=== PATIENT | male | born 1970 | race Caucasian/White ===

== ENCOUNTER 2023-05-21 17:39 | Inpatient (IN) | payer MEDICAID ==
[~2023-05-21] VITALS: Ht 180.3 cm; Wt 55.5 kg
[2023-05-21] MEDS ORDERED: ACETAMINOPHEN 325 MG TABLET PO PRN (18:30)
[2023-05-21] MEDS ORDERED: ALBUTEROL HALF STRENGTH 1.25 MG/3 ML VIAL.NEB NEB PRN (18:30)
[2023-05-21] MEDS ORDERED: ONDANSETRON HCL/PF 4 MG/2 ML VIAL IVP PRN (18:30)
[2023-05-21 19:10] VITALS: O2SAT 92
--- NOTE | 2023-05-21 19:10 | NUR ---
RN opening notes Received Pt sitting in bed comfortably. Pt is a direct admit from [facility]. Pt is alert and orientedx4. On 2 L NC. No SOB. No S/S of distress noted. IV site at LAC# 20 is clean, intact and flushes well. Pt refuses skin assessment. Explained risks and benefits. Pt informed that Pt's skin is intact. Pt is able to ambulates with a steady gait. Safety precautions is maintained. Bed at low position, brakes locked, side rails upX2, hob elevated, bed alarm is on and call light is within reach. Will continue to monitor.
[2023-05-21] MEDS: ALBUTEROL HALF STRENGTH 1.25 MG/3 ML VIAL.NEB NEB SCH (19:24)
[2023-05-21] MEDS: IPRATROPIUM NEB FS 0.5 MG/2.5 ML AMPUL.NEB NEB SCH (19:24)
[2023-05-21 19:28] VITALS: O2SAT 97
[2023-05-21] MEDS: predniSONE 20 MG TABLET PO SCH ×2 (19:55→21:00)
[2023-05-21] MEDS: CEFTRIAXONE 1 G in IV D5W 50 ML IV SCH (19:59)
[2023-05-21 20:00] VITALS: BP 99/59; TEMP 97.7; O2SAT 100
[2023-05-21] MEDS: AZITHROMYCIN 500 MG in IV D5W 250 ML IV SCH (21:08)
--- NOTE | 2023-05-21 21:20 | NUR ---
MAAME otoole Prednisone was given at 2054. Addendum: 05/22/23 at 701 by RAMAKRISHNA STEVEN RN was given at 1954. not 2054.
[2023-05-22] VITALS (11 sets, daily range): BP systolic 93–104; BP diastolic 59–66; TEMP 97.9–98; O2SAT 95–98
[2023-05-22] MEDS: predniSONE 20 MG TABLET PO SCH ×3 (05:10→20:19)
[2023-05-22 06:06] LABS: HEMATOCRIT 39 % (39-51); HEMOGLOBIN 13.3 g/dL (13.5-17.5); LYMPHOCYTES # (AUTO) 0.3 K/uL (0.8-4.8); LYMPHOCYTES % (AUTO) 2.5 % (20.0-44.0); MEAN CORPUSCULAR HGB CONC 34 g/dl (31.0-36.0); MEAN CORPUSCULAR VOLUME 93 fL (80-96); MONOCYTES # (AUTO) 0.9 K/uL (0.1-1.30); MONOCYTES % (AUTO) 6.5 % (2.0-12.0); NEUTROPHILS # (AUTO) 12.5 K/uL (1.8-8.9); PLATELET COUNT (AUTO) 282 K/uL (150-450); RED BLOOD CELL COUNT(AUTO) 4.18 MIL/uL (4.5-6.0); WHITE BLOOD COUNT (AUTO) 13.8 K/uL (4.3-11.0)
[2023-05-22 06:14] LABS: CALCIUM, SERUM 9.8 mg/dL (8.5-10.1); MAGNESIUM 2.2 mg/dL (1.8-2.4); PHOSPHORUS 4.3 mg/dL (2.5-4.9); POTASSIUM 4.3 mmol/L (3.5-5.1)
--- NOTE | 2023-05-22 06:30 | NUR ---
RN closing notes Pt is resting in bed comfortably. Pt is alert and orientedx4. On 2 L NC. No SOB. No S/S of distress noted. IV site at LAC# 20 is clean, intact and flushes well. Vs is stable. afebrile. routine meds were given as ordered. kept Pt clean,dry and comfortable. Safety precautions is maintained. Bed at low position, brakes locked, side rails upX2, hob elevated, bed alarm is on and call light is within reach. Will endorse to am nurse for RANDY.
--- NOTE | 2023-05-22 07:30 | NUR ---
MS RN OPENING NOTE Patient in bed, awake. a/O x 4,able to make needs known. On O2 at 2 LPM via NC, no SOB or s/s of distress noted. IV access on LAC #20 SL, intact and patent. Tanvir any pain or discomfort at this time. Safety precautions in place: bed in low, locked position; siderails up x 2; call light within reach. Will continue to monitor.
[2023-05-22] MEDS: IPRATROPIUM NEB FS 0.5 MG/2.5 ML AMPUL.NEB NEB SCH ×4 (07:53→20:10)
[2023-05-22] MEDS: ALBUTEROL HALF STRENGTH 1.25 MG/3 ML VIAL.NEB NEB SCH ×4 (07:53→20:10)
[2023-05-22] MEDS: CEFTRIAXONE 1 G in IV D5W 50 ML IV SCH (18:00)
--- NOTE | 2023-05-22 19:00 | NUR ---
RN opening notes Received Pt sitting in bed comfortably talking with roommates. Pt is alert and orientedx4. On 2 L NC. No SOB. No S/S of distress noted. IV site at LFA# 20 is clean, intact and flushes well. Pt is able to ambulates with a steady gait. Safety precautions is maintained. Bed at low position, brakes locked, side rails upX2, hob elevated, bed alarm is on and call light is within reach. Will continue to monitor.
--- NOTE | 2023-05-22 19:24 | NUR ---
MS RN CLOSING NOTE Patient in bed, resting. A/O x 4,able to make needs known. On O2 at 2 LPM via NC, no SOB or s/s of distress noted. IV access on LFA #20 SL, intact and patent. Denies any pain or discomfort at this time. All needs attended to. Due meds given. Safety precautions in place: bed in low, locked position; siderails up x 2; call light within reach. Will endorse to litigation docket manager nurse for RANDY.
[2023-05-22] MEDS: AZITHROMYCIN 500 MG in IV D5W 250 ML IV SCH (20:07)
[2023-05-23] VITALS (11 sets, daily range): BP systolic 97–115; BP diastolic 64–74; TEMP 97.6–98; O2SAT 90–98
[2023-05-23] MEDS: predniSONE 20 MG TABLET PO SCH ×3 (05:51→20:35)
--- NOTE | 2023-05-23 06:40 | NUR ---
RN closing notes Pt is resting in bed comfortbaly. Pt is alert and orientedx4. On 1 L NC. No SOB. No S/S of distress noted. IV site at LFA# 20 is clean, intact and flushes well. Routine meds were given as ordered. Kept Pt clean, dry and comfortbale. Safety precautions is maintained. Bed at low position, brakes locked, side rails upX2, hob elevated, bed alarm is on and call light is within reach. Will endorse to am nurse for RANDY.
[2023-05-23] MEDS ORDERED: ALBUTEROL 90 MCG INH (08:17)
[2023-05-23] MEDS: ALBUTEROL HALF STRENGTH 1.25 MG/3 ML VIAL.NEB NEB SCH ×4 (08:22→20:10)
[2023-05-23] MEDS: IPRATROPIUM NEB FS 0.5 MG/2.5 ML AMPUL.NEB NEB SCH ×4 (08:22→20:10)
[2023-05-23] MEDS: ENSURE ENLIVE CHOC 237 ML CAN PO SCH ×2 (12:14→17:02)
--- NOTE | 2023-05-23 18:41 | NUR ---
CLOSING NOTE PATIENT IN ROOM A/Ox4, BEING MONITORED ON ROOM AIR SPO2 95%, WITH NO S/S OF SOB OR DISTRESS. PATIENT DENIES ANY PAIN AT THIS TIME. THROUGHOUT SHIFT COMPLIANT AND COOPERATIVE TO CARE. ADMINISTERED MEDICATION MD ORDER/ PER PT STATUS. IV LFA G20 REMAINS INTACT AND PATENT, FLUSHING WELL. FALL AND SAFETY PRECAUTION IN PLACE: BED LOCKED AND AT THE LOWEST POSITION, SRx2, CALL LIGHT WITHIN REACH
[2023-05-23] MEDS: CEFTRIAXONE 1 G in IV D5W 50 ML IV SCH (18:50)
--- NOTE | 2023-05-23 19:30 | NUR ---
RN OPENING NOTE RECEIVED PT AWAKE, WATCHING TV AT THIS TIME. A/O X4, ABLE TO MAKE NEEDS KNOWN. ON RA WITH NO S/S OF SOB OR DISTRESS. DENIES ANY PAIN AT THIS TIME. IV ACCESS LFA #20G, PATENT, INTACT, FLUSHING WELL. FALL AND SAFETY PRECAUTION IN PLACE: BED LOCKED AND AT THE LOWEST POSITION, SRx2, CALL LIGHT AND TRAY TABLE WITHIN REACH. WILL CONTINUE TO MONITOR AND ASSIST.
[2023-05-23] MEDS: AZITHROMYCIN 500 MG in IV D5W 250 ML IV SCH (20:35)
[2023-05-24] VITALS (10 sets, daily range): BP systolic 106–112; BP diastolic 65–77; TEMP 98; O2SAT 94–98
[2023-05-24] MEDS: predniSONE 20 MG TABLET PO SCH ×3 (04:32→20:18)
--- NOTE | 2023-05-24 06:44 | NUR ---
RN CLOSING NOTE PT AWAKE, WATCHING TV AT THIS TIME. A/O X4, ABLE TO MAKE NEEDS KNOWN. STABLE ON RA WITH NO S/S OF SOB OR DISTRESS, SAT AT 95%. DENIES ANY PAIN AT THIS TIME. IV ACCESS LFA #20G, PATENT, INTACT, FLUSHING WELL. ALL CARE PROVIDED AND MEDS TOLERATED EWLL. FALL AND SAFETY PRECAUTION MAINTAINED: BED LOCKED AND AT THE LOWEST POSITION, SRx2, CALL LIGHT AND TRAY TABLE WITHIN REACH. WILL ENDORSE RANDY TO DAY SHIFT NURSE.
--- NOTE | 2023-05-24 07:28 | NUR ---
OPENING NOTES PATIENT AWAKE IN BED, A/O X4. NO S/S OF PAIN NOTED AT THIS TIME. ON O2 AT 1LPM VIA NASAL CANNULA PRN, BREATHING EVEN AND UNLABORED, NO DISTRESS OR SOB NOTED. IV ACCESS LFA #20G SL, INTACT, PATENT AND FLUSHING WELL. FALL AND SAFETY MEASURES IN PLACE AND MAINTAINED AT ALL TIMES, BED ALARM ON, BED IN LOW AND LOCK POSITION, CALL LIGHT AND TABLE WITHIN EASY REACH, SIDE RAILS UP X2. WILL CONTINUE TO MONITOR THE PATIENT.
[2023-05-24] MEDS: ALBUTEROL HALF STRENGTH 1.25 MG/3 ML VIAL.NEB NEB SCH ×4 (07:37→20:12)
[2023-05-24] MEDS: IPRATROPIUM NEB FS 0.5 MG/2.5 ML AMPUL.NEB NEB SCH ×4 (07:37→20:12)
[2023-05-24] MEDS: ENSURE ENLIVE CHOC 237 ML CAN PO SCH ×3 (08:22→16:47)
[2023-05-24] MEDS ORDERED: LEVO500T90 PO (12:10)
[2023-05-24] MEDS ORDERED: FLUT1DIS3 INH (12:10)
[2023-05-24] MEDS ORDERED: PRED20TA PO (12:10)
--- NOTE | 2023-05-24 14:36 | NUR ---
RN NOTE SPOKE WITH PALAK ROSA, DISCHARGE MEDICATION WILL STILL BE AVAILABLE TOMORROW MORNING. PATIENT OPTED TO WAIT FOR MEDICATION. INSTRUCTED OF DISCHARGE TOMORROW MORNING AND [place] [address] [facility], [address], [place] [address]. PATIENT VERBALIZED UNDERSTANDING
[2023-05-24] MEDS: CEFTRIAXONE 1 G in IV D5W 50 ML IV SCH (18:40)
--- NOTE | 2023-05-24 19:30 | NUR ---
RN OPENING NOTES RECEIVED PATIENT AWAKE IN BED, WATCHING TV AT THIS TIME. A/O X4, ABLE TO MAKE NEEDS KNOWN. NO S/S OF PAIN NOTED AT THIS TIME. ON RA, BREATHING EVEN AND UNLABORED, NO DISTRESS OR SOB NOTED. IV ACCESS RFA #22G SL, INTACT, PATENT AND FLUSHING WELL. FALL AND SAFETY MEASURES IN PLACE: BED LOCKED AND IN LOW POSITION, SIDE RAILS UP X2, CALL LIGHT AND TABLE WITHIN EASY REACH. WILL CONTINUE TO MONITOR AND ASSIST.
--- NOTE | 2023-05-24 19:38 | NUR ---
CLOSING NOTES PATIENT AWAKE IN BED, A/O X4. NO S/S OF PAIN NOTED AT THIS TIME. ON O2 AT 1LPM VIA NASAL CANNULA PRN, BREATHING EVEN AND UNLABORED, NO DISTRESS OR SOB NOTED. REINSERTED IV ACCESS RFA #22G SL, INTACT, PATENT AND FLUSHING WELL. TURN TO SIDES Q2H PER PROTOCOL. SKIN CARE IMPLEMENTED. FALL AND SAFETY MEASURES IN PLACE AND MAINTAINED AT ALL TIMES, BED ALARM ON, BED IN LOW AND LOCK POSITION, CALL LIGHT AND TABLE WITHIN EASY REACH, SIDE RAILS UP X2. WILL ENDORSE TO QUALITY PROCESS LEAD NURSE
[2023-05-24] MEDS: AZITHROMYCIN 500 MG in IV D5W 250 ML IV SCH (20:17)
[2023-05-25] MEDS: predniSONE 20 MG TABLET PO SCH (04:21)
--- NOTE | 2023-05-25 06:30 | NUR ---
RN CLOSING NOTES PATIENT SLEEPING IN BED, EASILY AROUSED. A/O X4, ABLE TO MAKE NEEDS KNOWN. NO S/S OF PAIN NOTED AT THIS TIME. STABLE ON RA, BREATHING EVEN AND UNLABORED, NO DISTRESS OR SOB NOTED. IV ACCESS RFA #22G SL, INTACT, PATENT AND FLUSHING WELL. ALL CARE PROVIDED AND MEDS TOLERATED WELL. FALL AND SAFETY MEASURES IN PLACE: BED LOCKED AND IN LOW POSITION, SIDE RAILS UP X2, CALL LIGHT AND TABLE WITHIN EASY REACH. WILL ENDORSE RANDY TO DAY SHIFT NURSE.
--- NOTE | 2023-05-25 07:25 | NUR ---
OPENING NOTES PATIENT AWAKE IN BED, A/O X4. NO S/S OF PAIN NOTED AT THIS TIME. ON ROOM AIR, BREATHING EVEN AND UNLABORED, NO DISTRESS OR SOB NOTED. IV ACCESS RFA #20G SL, INTACT, PATENT AND FLUSHING WELL. FALL AND SAFETY MEASURES IN PLACE AND MAINTAINED AT ALL TIMES, BED ALARM ON, BED IN LOW AND LOCK POSITION, CALL LIGHT AND TABLE WITHIN EASY REACH, SIDE RAILS UP X2. WILL CONTINUE TO MONITOR THE PATIENT.
[2023-05-25 07:31] VITALS: O2SAT 94
[2023-05-25] MEDS: ALBUTEROL HALF STRENGTH 1.25 MG/3 ML VIAL.NEB NEB SCH ×2 (07:31→11:10)
[2023-05-25] MEDS: IPRATROPIUM NEB FS 0.5 MG/2.5 ML AMPUL.NEB NEB SCH ×2 (07:31→11:10)
[2023-05-25 07:44] VITALS: O2SAT 100
[2023-05-25] MEDS: ENSURE ENLIVE CHOC 237 ML CAN PO SCH (08:15)
--- NOTE | 2023-05-25 11:06 | NUR ---
"SW consult: SW consult requested for a homeless 52 year old male who was brought to [facility] ER due to chest pain. Patient was in bed and appeared to be alert and oriented X4 (self, place, time, situation)and was cooperative with this personal lines underwriter while conducting an assessment.Patient moved back to [place] from [place] and is staying at a nursing home at [address] [place] [address] since January 29. 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 Patient stated that his 24 year old son is his support system. Patient denied any visual/auditory hallucinations and denied any Suicidal/Homicidal ideation. Patient signed a homeless waiver and SW filed it is his chart. DC Plan: Patient would return to [address] [place] [address]. Homeless Resource: HOMELESS: Shelters: [facility] Provider: [facility] Address: [address] [place] [address] [place] [address] # of Beds: 47 Population Served: [facility] 6 | [facility] Provider: [facility] Address: [address], [address] # of Beds: 66 Population Served: [facility] Provider: First to Serve Address: [address] [facility], [address] # of Beds: 56 Population Served: [facility] [place] Provider: [facility]. [facility] Address: [address] [facility], [address] # of Beds: 49 Population Served: [facility] 8 | [facility] Provider: First to Serve Address: [address] [facility], [address] # of Beds: 37 Population Served: [facility] Hygiene: [facility]: [address] [address] [place] ; [place] [facility] [address] [facility] ; Mid [place] [address] . Food Resources: [place] [facility] at [facility]- [address] [place]; Meet Each Need with Dignity ([facility]) [address] [place]; [facility] Food Pantry [address] [facility]; [facility] [address] [facility] Hospital[facility]hea [place]. Mental Health resources provided: [facility] [address] [place], [place] [address] ; [facility] [place], Inc[employer] [address] [facility] [address], [place], [place] [id number] ; [facility] Mental [facility] [address] [facility] [place], [place] [id number] ; [facility] Health [place] [address] [place], [place] [id number] Healthcare Clinics: [facility] [address] [facility], [address] [place]. [place] ; [facility] [address] [facility] [address] [place] [address]; [facility] [address] [facility]. [place] [phone] Counseling--Outpatient [facility] [address] [facility], [place] [address] (Specializes in in-depth psychotherapy for emotional distress: anxiety, depression, interpersonal conflicts, life transitions, childhood abuse) [facility] [address] [place] [address] (Assist with solving problem marital difficulties, separation & divorce, aging parents, & grief, chronic & terminal illness) [facility] [address] [place] [address] (Deal with loss & grief, anxiety, marital difficulties) Homebound/Mental Health Services [address] [facility], [address] [place], [place] [id number] (Provide in-home mental services to people who are incapable of leaving their homes) Organization for Needs of the Elderly Senior Service/Resource Center [address] [place], [place] [phone] [facility] [address] [place] [address] PSYCHIATRIC OUTPATIENT SERVICES [facility] Partial Hospitalization and Intensive Outpatient Program (Managed Care and [place] Only) [address] [place] [address] [facility] [address] [facility] Partial Hospitalization and Outpatient Program [address] [place] [address] [place], [place] [id number] [facility] Mental Health [facility] [address] [place] [address] [facility] Partial Hospitalization and Outpatient Program [address] [address] [place], [place] [phone] Food Pantries [facility] [address] [place] [address] [place] [facility] [address] [place] [address] FISH of [place] [address] [place] [address] Loaves and Fishes II [address] [place] [address] [facility] Food Pantry - [address] [place] [address] [facility] [address] [place] [address] [facility] [address] [place] [address] Rock of the [place] [address] [place] [address] [place] Hunger Relief of [place] [address] [place] [address] [facility] [address] [place] [address] [facility] [address] [place] [address] M F 9am - 12 noon [phone] M Th 10am 2 pm Fri 10 am 12 noon [phone] Wed 1 3 pm Sat 1 3:30 pm [phone] M, W 10 am 12:30 pm [phone] M, F 7:30 11 am T, F 9 11 am [phone] MTh, 10am1:30pm Sun 9 am 12 noon [phone] Tues 45:30 pm [phone] Fri 8 10 am [phone] Wed 4 pm Sign up begins 12:30 pm [phone] Thurs 2 3 pm [phone] [facility] [place] Food Mandel Multiple Food Mandel in the [place] on different days [email or web address] St. [facility] [place] by [facility] [address] [place] [address] [facility] [address] [place] [address] [facility] [address]50 [place] [address] [facility] [address] [place] [address] 9am Noon 9am Noon 9am Noon 1pm - 5pm 8am 11am 7:30-10:30 am You have value. day 9 am 12 noon [phone] Tuesday 2 3 pm [phone] Joseph 6 8:30 pm [phone] Tuesday: 4:30-6:30 Joseph: 3:30 5:00 pm Compliments of [address] [place] | [phone] Take the next step towards hope. Food Pantries Food Pantries HOMELESS RESOURCE 2021 DIRECTORY Hot Showers Includes food and clothing resources 2 Parents with Children 0926 [facility] [phone] [facility] [phone] Ascencia [place] [phone] [facility] [phone] Family [facility] [phone] [facility] [phone] ext 240 [facility] [phone] [facility] [phone] Little [place] ranulfo [place] [phone] [facility] [phone] [facility] [place] [phone] The Midnight [place] [phone] ext [phone] New Life Beginnings [place] [phone] [facility] [place] [phone] Starting Over [phone] [facility] [place] [phone] Emergency/First Come, First Served 211 [facility], Call 211 [facility] [place] [phone] [address] [place] [address] Single Men Ascencia [place] [phone] Salvation [facility] [phone] [facility] [place] [phone] [place] [facility] [place] [facility]athy [place] [phone] [facility] [phone] [facility] [phone] Starting Over [phone] The Midnight [place] [phone] ext [phone] [facility] [place] [phone] [facility] [phone] Mens Recovery Programs Abernathy [place] [phone] [facility] [phone] The Midnight [place] [phone] ext [phone] [facility] [place] [phone] [facility] [place] [phone] [facility] [phone] Single Women A Way of Life [phone] Ascencia [place] [phone] Good Jim[place] [phone] [facility] [phone] [facility] [phone] The Midnight [place] [phone] ext 1650 New Economics for Women [phone] Starting Over [phone] Sex Trafficking Children of the Night [place] [phone] ext 0 [facility] [place] [phone] [employer] Project Hotline [phone] Women's Recovery Programs [facility] Mental Health Services [phone] Abernathy [place] [phone] [facility] [place] [phone] [facility] [place] [phone] [facility] [place] [phone] [facility] [phone] [facility] [place] [phone] Youth Only (11-28 years old) 1736 Family [facility] [phone] Children of the Night Benjamin Glover [phone] ext 0 Youth Emerging Stronger ([place] [facility]) [facility] [phone] [facility] [place] (18-24 years old) [phone] [facility] (16-24 years old) [phone] [facility] (16-28 years old) Intimate Partner/ Domestic Violence 1736 Family [facility] [place] [phone] [facility] [phone] [facility] [phone] [facility] [phone] [facility] [phone] [facility] [phone] [facility] [phone] [facility] [phone] [facility] [place] [phone] [place] [facility] [place] [facility] [phone] Shepherds Door [phone] Sojourn, The Peoples Concern [phone] [place] [phone] [facility] [phone] [facility] [place] [phone] Domestic Abuse Response Team National hotline [phone] Women [facility] [phone] [facility] [phone] [facility] [place] [phone] [facility] [phone] [facility] [phone] [facility] Service"
[2023-05-25 11:10] VITALS: O2SAT 96
[2023-05-25 11:23] VITALS: O2SAT 99
--- NOTE | 2023-05-25 12:05 | NUR ---
DISCHARGE NOTE PATIENT DISCHARGE IN STABLE MEDICAL CONDITION. A/O X4. VITAL SIGNS TAKEN, STABLE AND RECORDED. NO IV ACCESS. NAME ARM BAND REMOVED. SKIN INTACT. ALL BELONGINGS CHECKED AND BELONGINGS LIST SIGNED. HEALTH TEACHING AND DISCHARGE INSTRUCTIONS GIVEN AND VERBALIZED UNDERSTANDING. INSTRUCTED PATIENT TO EXECUTIVE PERSONAL ASSISTANT MEDICATION AT [facility], ADDRESS PROVIDED. DISCUSSED PRESCRIPTION WITH PATIENT. INSTRUCTED PATIENT IN CASE OF EMERGENCY TO CALL 911 OR GO TO THE NEAREST ER. PATIENT LEFT AMBULATING WITH NO SIGNS OF DISTRESS, ACCOMPANIED BY RN TO THE LOBBY. PATIENT WAS PICKED UP BY SON TAYLOR. CHARGE NURSE AWARE OF DISCHARGED.
== END 2023-05-25 12:00 | disposition home or self-care (01) | DRG 137 ==
LOC: TELE 17:39 → MED 18:40
PROVIDERS: ADMIT Nurse Practitioner Acute Care; ATTEND Nurse Practitioner Family
DX: J15.6 Pneumonia due to other Gram-negative bacteria (principal); E87.1 Hypo-osmolality and hyponatremia; R65.10 Systemic inflammatory response syndrome (SIRS) of non-infectious origin without acute organ dysfunction; J44.0 Chronic obstructive pulmonary disease with (acute) lower respiratory infection; J44.1 Chronic obstructive pulmonary disease with (acute) exacerbation; F17.210 Nicotine dependence, cigarettes, uncomplicated; Z59.01 Sheltered homelessness
CPT/HCPCS: 36415; 80048-TC; 83735-TC; 84100-TC; 85025-TC; 87081-TC; 94799-TC; A4223; G0378; J0456; J0696; J7040; J7060

== ENCOUNTER 2024-05-29 10:23 | Inpatient (IN) | payer MEDICAID ==
[2024-05-29] VITALS (11 sets, daily range): BP systolic 102–130; BP diastolic 67–78; TEMP 97.8; O2SAT 93–100
[~2024-05-29] VITALS: Ht 180.3 cm; Wt 52.6 kg
[~2024-05-29 10:23] MED LIST: ALBUTEROL 90 MCG INH
[2024-05-29 10:56] LABS: BASOPHILS % (AUTO) 0.1 % (0.0-2.0); HEMATOCRIT 43 % (39-51); HEMOGLOBIN 14.7 g/dL (13.5-17.5); LYMPHOCYTES # (AUTO) 0.8 K/uL (0.8-4.8); MEAN CORPUSCULAR HEMOGLOBIN 31 PG (26.0-33.0); MEAN CORPUSCULAR HGB CONC 34 g/dl (31.0-36.0); MEAN CORPUSCULAR VOLUME 93 fL (80-96); MONOCYTES # (AUTO) 1.5 K/uL (0.1-1.30); MONOCYTES % (AUTO) 7.5 % (2.0-12.0); NEUTROPHILS # (AUTO) 17.5 K/uL (1.8-8.9); NEUTROPHILS % (AUTO) 88.4 % (43.0-81.0); PLATELET COUNT (AUTO) 305 K/uL (150-450); RED BLOOD CELL COUNT(AUTO) 4.69 MIL/uL (4.5-6.0); RED CELL DISTRIBUTION WIDTH 13.3 % (11.5-15.0); WHITE BLOOD COUNT (AUTO) 19.8 K/uL (4.3-11.0)
[2024-05-29 11:07] LABS: CALCIUM, SERUM 8.5 mg/dL (8.5-10.1); CARBON DIOXIDE 39 mmol/L (21-32); CHLORIDE 87 mmol/L (98-107); CREATININE 0.8 mg/dL (0.6-1.3); GLUCOSE 143 mg/dL (74-106); POTASSIUM 4.9 mmol/L (3.5-5.1); SODIUM SERUM 124 mmol/L (136-145); UREA NITROGEN, BLOOD 12 mg/dL (7-18)
[2024-05-29 11:08] LABS: PARTIAL THROMBOPLASTIN TIME 22.3 SEC (24.3-34.3); PROTHROMBIN TIME 10.3 SECS (9.2-11.1)
[2024-05-29 11:20] LABS: ALANINE AMINOTRANSFERASE 26 U/L (12-78); ALBUMIN 3.5 g/dL (3.4-5.0); ALKALINE PHOSPHATASE 60 U/L (46-116); ASPARTATE AMINOTRANSFERASE 12 U/L (15-37); BILIRUBIN,DIRECT 0.3 mg/dL (0.0-0.2); BILIRUBIN,TOTAL 1.3 mg/dL (0.2-1.0); NT-PRO BNP 209 pg/mL (0-125); TOTAL PROTEIN, SERUM 6.9 g/dL (6.4-8.2)
[2024-05-29] MEDS: IPRATROPIUM NEB FS 0.5 MG/2.5 ML AMPUL.NEB NEB ONE (11:30)
[2024-05-29] MEDS: ALBUTEROL FS 2.5 MG/3 ML VIAL.NEB NEB ONE (11:30)
[2024-05-29] MEDS ORDERED: ALBU18HF2 IH (12:41)
[2024-05-29] MEDS ORDERED: ALBUTEROL FS 2.5 MG/3 ML VIAL.NEB ONE (12:47)
[2024-05-29] MEDS ORDERED: IPRATROPIUM NEB FS 0.5 MG/2.5 ML AMPUL.NEB ONE (12:47)
[2024-05-29 13:07] LABS: SITE, VBG Left Radial; VBG BASE EXCESS 5.6 mmol/L (-3-3); VBG COHb 2.2 %; VBG MetHb 0.5 %; VBG O2Hb 94.4 %; VBG PCO2 67.5 mmHg (40-52); VBG PH 7.322 (7.31-7.41); VBG PO2 99.6 mmHg (30-50); VBG TOTAL HEMOGLOBIN 14.7 G/dL (13.5-18.0); VENT MODE, VBG 4L O2 N.C
[2024-05-29 13:50] LABS: SITE, VBG Left Radial; VBG BASE EXCESS 4.2 mmol/L (-3-3); VBG COHb 1.9 %; VBG MetHb 0.4 %; VBG O2Hb 94.9 %; VBG OXYGEN SATURATION 97.1 %; VBG PCO2 68.1 mmHg (40-52); VBG PH 7.304 (7.31-7.41); VBG PO2 99.7 mmHg (30-50); VBG TOTAL HEMOGLOBIN 15.4 G/dL (13.5-18.0); VENT MODE, VBG 5L O2 NC
[2024-05-29] MEDS ORDERED: MAGNESIUM HYDROXIDE 30 ML UDC PO PRN (16:30)
[2024-05-29] MEDS ORDERED: ONDANSETRON HCL/PF 4 MG/2 ML VIAL IVP PRN (16:30)
[2024-05-29] MEDS ORDERED: Z GUARD REMEDY 4 OZ OINT TP PRN (16:30)
[2024-05-29 17:13] LABS: LACTIC ACID 3.4 mmol/L (0.4-2.0)
[2024-05-29] MEDS: methylPREDNISolone SOD SUCC 125 MG/2ML VIAL IV ONE (17:45)
[2024-05-29] MEDS: ENOXAPARIN SODIUM 40 MG/0.4 ML DISP.SYRIN SQ SCH (17:46)
[2024-05-29] MEDS: LEVOFLOXACIN 750 MG /D5W 150ML 750 MG in PREMIX 1 EA IV SCH (17:50)
[2024-05-29 18:39] LABS: APPEARANCE,URINE CLEAR (CLEAR); BILIRUBIN,URINE NEGATIVE (NEGATIVE); BLOOD, URINE NEGATIVE Ery/uL (NEGATIVE); COLOR,URINE YELLOW (YELLOW); KETONES,URINE NEGATIVE (NEGATIVE); LEUKOCYTE ESTERASE ,URINE NEGATIVE (NEGATIVE); NITRITE, URINE NEGATIVE (NEGATIVE); PROTEIN,URINE NEGATIVE (NEGATIVE); UGLUCOSE NEGATIVE (NEGATIVE)
[2024-05-29 18:47] LABS: URINE SODIUM, RANDOM 159 mmol/l (40-220)
[2024-05-29 18:52] LABS: ADD URINE CULTURE NO; BACTERIA,URINE None seen /HPF (None Seen); RBC,URINE NONE SEEN /HPF (0-2); WBC,URINE NONE SEEN /HPF (0-3)
[2024-05-29] MEDS: ALBUTEROL FS 2.5 MG/3 ML VIAL.NEB NEB SCH (20:17)
[2024-05-29] MEDS: IPRATROPIUM NEB FS 0.5 MG/2.5 ML AMPUL.NEB NEB SCH (20:17)
[2024-05-29] MEDS: methylPREDNISolone SOD SUCC 40 MG/ML VIAL IV SCH (21:09)
[2024-05-29] MEDS: DOXYCYCLINE 100 MG in IV D5W 100 ML IV SCH (21:10)
[2024-05-30] VITALS (22 sets, daily range): BP systolic 90–117; BP diastolic 63–92; TEMP 97.2–98.1; O2SAT 92–100
[2024-05-30 04:37] LABS: BASOPHILS % (AUTO) 0.1 % (0.0-2.0); HEMATOCRIT 38 % (39-51); HEMOGLOBIN 12.8 g/dL (13.5-17.5); LYMPHOCYTES # (AUTO) 0.1 K/uL (0.8-4.8); MEAN CORPUSCULAR HEMOGLOBIN 32 PG (26.0-33.0); MEAN CORPUSCULAR HGB CONC 34 g/dl (31.0-36.0); MEAN CORPUSCULAR VOLUME 94 fL (80-96); MONOCYTES # (AUTO) 0.3 K/uL (0.1-1.30); NEUTROPHILS % (AUTO) 96.9 % (43.0-81.0); PLATELET COUNT (AUTO) 214 K/uL (150-450); RED BLOOD CELL COUNT(AUTO) 4.02 MIL/uL (4.5-6.0); RED CELL DISTRIBUTION WIDTH 13.2 % (11.5-15.0); WHITE BLOOD COUNT (AUTO) 14.4 K/uL (4.3-11.0)
[2024-05-30 05:15] LABS: CALCIUM, SERUM 8.6 mg/dL (8.5-10.1); CREATININE 0.6 mg/dL (0.6-1.3); MAGNESIUM 2.1 mg/dL (1.8-2.4); POTASSIUM 5.3 mmol/L (3.5-5.1)
[2024-05-30 05:30] LABS: THYROID STIMULATING HORMONE 0.7 uIU/mL (0.358-3.74)
[2024-05-30] MEDS: PANTOPRAZOLE 40 MG TABLET.DR PO SCH (08:11)
[2024-05-30] MEDS: NICOTINE PATCH (21MG) 21 MG PATCH.TD24 TD SCH (08:11)
[2024-05-30 10:32] LABS: ABG BASE EXCESS 3.2 mmol/L (-2.0-2.0); ABG OXYGEN SATURATION 91.8 % (92.0-98.5); ABG PCO2 58.9 mmHg (35.0-45.0); ABG PH 7.335 (7.340-7.440); ABG PO2 63.9 mmHg (75.0-100.0); ABG TOTAL HEMOGLOBIN 14.6 G/dL (14.0-18.0); AaDO2 66.2 mmHg; MetHb 0.2 % (0.0-1.5); O2Hb 90.7 % (94.0-97.0); SITE, ABG Right Brachial; VENT MODE, BG nasal cannula
[2024-05-30] MEDS: ACETAMINOPHEN 325 MG TABLET PO PRN (20:20)
[2024-05-30 21:08] LABS: OSMOLALITY,URINE 755 mOS/kg (340-1090)
[2024-05-31] VITALS (14 sets, daily range): BP systolic 102–113; BP diastolic 60–73; TEMP 97.5–98.2; O2SAT 96–100
[2024-05-31 07:27] LABS: BASOPHILS % (AUTO) 0.1 % (0.0-2.0); HEMATOCRIT 37 % (39-51); HEMOGLOBIN 12.4 g/dL (13.5-17.5); LYMPHOCYTES # (AUTO) 0.1 K/uL (0.8-4.8); LYMPHOCYTES % (AUTO) 1.4 % (20.0-44.0); MEAN CORPUSCULAR HEMOGLOBIN 32 PG (26.0-33.0); MEAN CORPUSCULAR HGB CONC 34 g/dl (31.0-36.0); MEAN CORPUSCULAR VOLUME 93 fL (80-96); MONOCYTES # (AUTO) 0.6 K/uL (0.1-1.30); MONOCYTES % (AUTO) 5.5 % (2.0-12.0); NEUTROPHILS # (AUTO) 9.6 K/uL (1.8-8.9); PLATELET COUNT (AUTO) 260 K/uL (150-450); RED BLOOD CELL COUNT(AUTO) 3.92 MIL/uL (4.5-6.0); RED CELL DISTRIBUTION WIDTH 13.1 % (11.5-15.0); WHITE BLOOD COUNT (AUTO) 10.4 K/uL (4.3-11.0)
[2024-05-31 07:46] LABS: CALCIUM, SERUM 8.7 mg/dL (8.5-10.1); CREATININE 0.7 mg/dL (0.6-1.3); MAGNESIUM 2.1 mg/dL (1.8-2.4); PHOSPHORUS 3.2 mg/dL (2.5-4.9)
[2024-05-31] MEDS: ENSURE ENLIVE 237 ML LIQUID (VANILLA) PO SCH (10:58)
[2024-06-01] VITALS (13 sets, daily range): BP systolic 103–110; BP diastolic 63–74; TEMP 97.5–98.3; O2SAT 91–100
[2024-06-01 07:29] LABS: HEMATOCRIT 36 % (39-51); HEMOGLOBIN 11.9 g/dL (13.5-17.5); LYMPHOCYTES # (AUTO) 0.4 K/uL (0.8-4.8); LYMPHOCYTES % (AUTO) 3.8 % (20.0-44.0); MEAN CORPUSCULAR HEMOGLOBIN 31 PG (26.0-33.0); MEAN CORPUSCULAR HGB CONC 34 g/dl (31.0-36.0); MEAN CORPUSCULAR VOLUME 94 fL (80-96); MONOCYTES % (AUTO) 9.8 % (2.0-12.0); NEUTROPHILS # (AUTO) 8.8 K/uL (1.8-8.9); NEUTROPHILS % (AUTO) 86.4 % (43.0-81.0); PLATELET COUNT (AUTO) 259 K/uL (150-450); RED BLOOD CELL COUNT(AUTO) 3.81 MIL/uL (4.5-6.0); RED CELL DISTRIBUTION WIDTH 13.1 % (11.5-15.0); WHITE BLOOD COUNT (AUTO) 10.2 K/uL (4.3-11.0)
[2024-06-01 07:33] LABS: CALCIUM, SERUM 8.4 mg/dL (8.5-10.1); CREATININE 0.8 mg/dL (0.6-1.3); POTASSIUM 4.6 mmol/L (3.5-5.1)
[2024-06-01] MEDS: methylPREDNISolone SOD SUCC 40 MG/ML VIAL IV SCH (08:41)
[2024-06-01] MEDS: LEVOFLOXACIN (250MG) 250 MG TABLET PO SCH (15:53)
[2024-06-02 02:01] VITALS: O2SAT 92
[2024-06-02 02:16] VITALS: O2SAT 94
[2024-06-02 04:00] VITALS: BP 109/70; TEMP 98.5; O2SAT 93
[2024-06-02 07:28] LABS: EOSINOPHILS % (AUTO) 0.1 % (0.0-6.0); HEMATOCRIT 38 % (39-51); HEMOGLOBIN 12.9 g/dL (13.5-17.5); LYMPHOCYTES # (AUTO) 1.1 K/uL (0.8-4.8); LYMPHOCYTES % (AUTO) 16.7 % (20.0-44.0); MEAN CORPUSCULAR HEMOGLOBIN 32 PG (26.0-33.0); MEAN CORPUSCULAR HGB CONC 34 g/dl (31.0-36.0); MEAN CORPUSCULAR VOLUME 94 fL (80-96); MONOCYTES # (AUTO) 0.9 K/uL (0.1-1.30); MONOCYTES % (AUTO) 13.7 % (2.0-12.0); NEUTROPHILS # (AUTO) 4.6 K/uL (1.8-8.9); NEUTROPHILS % (AUTO) 69.5 % (43.0-81.0); PLATELET COUNT (AUTO) 232 K/uL (150-450); RED BLOOD CELL COUNT(AUTO) 4.08 MIL/uL (4.5-6.0); RED CELL DISTRIBUTION WIDTH 13.2 % (11.5-15.0); WHITE BLOOD COUNT (AUTO) 6.7 K/uL (4.3-11.0)
[2024-06-02 07:49] LABS: CALCIUM, SERUM 8.8 mg/dL (8.5-10.1); CREATININE 0.7 mg/dL (0.6-1.3); POTASSIUM 4.4 mmol/L (3.5-5.1)
[2024-06-02] MEDS: predniSONE 20 MG TABLET PO SCH (09:09)
[2024-06-02 12:00] VITALS: BP 120/79; TEMP 98.1; O2SAT 94
[2024-06-02] MEDS ORDERED: NICO-762 TD (12:48)
[2024-06-02] MEDS ORDERED: FLUT1BLS6 IH (12:48)
[2024-06-02] MEDS ORDERED: DOXY100T2 PO (12:48)
[2024-06-02] MEDS ORDERED: ALBU18HF2 INH (12:48)
[2024-06-02] MEDS ORDERED: LEVO250T59 PO (12:48)
[2024-06-02] MEDS ORDERED: PRED20TA PO (12:48)
[2024-06-02] MEDS ORDERED: DOXYCYCLINE HYCLATE (100 MG) 100 MG TABLET PO SCH (21:00)
== END 2024-06-02 16:02 | disposition home or self-care (01) | DRG 720 ==
LOC: ER 10:27 → ICU 16:04 → TELE1 05-30 12:58 → TELE-TD 05-30 13:08 → TELE1 05-31 09:45 → MEDSG1 06-01 17:14
PROVIDERS: ADMIT Nurse Practitioner Family; ATTEND Nurse Practitioner Acute Care
PROC: 5A09357 Assistance with Respiratory Ventilation, Less than 24 Consecutive Hours, Continuous Positive Airway Pressure (ICD-10-PCS; principal; 2024-05-29)
DX: A41.9 Sepsis, unspecified organism (principal); J96.21 Acute and chronic respiratory failure with hypoxia; E43 Unspecified severe protein-calorie malnutrition; R64 Cachexia; J15.9 Unspecified bacterial pneumonia; E87.1 Hypo-osmolality and hyponatremia; J44.0 Chronic obstructive pulmonary disease with (acute) lower respiratory infection; J44.1 Chronic obstructive pulmonary disease with (acute) exacerbation; J96.22 Acute and chronic respiratory failure with hypercapnia; Z79.51 Long term (current) use of inhaled steroids; F17.200 Nicotine dependence, unspecified, uncomplicated; E80.6 Other disorders of bilirubin metabolism; E87.5 Hyperkalemia; J43.9 Emphysema, unspecified; E86.1 Hypovolemia; Z59.01 Sheltered homelessness; D64.9 Anemia, unspecified; Z91.199 Patient's noncompliance with other medical treatment and regimen due to unspecified reason; R91.1 Solitary pulmonary nodule
CPT/HCPCS: 36415; 36600; 71045-TC; 71250-TC; 80048-TC; 80061-TC; 80076-TC; 81001; 82803-TC; 83605-TC; 83735-TC; 83880; 83935-TC; 84100-TC; 84300-TC; 84443-TC; 84484-TC; 85025-TC; 85378-TC; 85730-TC; 87040-TC; 87081-TC; 87086-TC; 94799-TC; 97110-TC; 97116-TC; 97530-TC; 98960; A4216; A4223; G0378; J1650; J1956; J2919; J3490; J7050; J7060